=== PATIENT | male | born 1980 | race Caucasian/White ===

== ENCOUNTER 2020-10-11 12:56 | Emergency (ER) | payer BC ==
[~2020-10-11] VITALS: Ht 165.1 cm; Wt 70.8 kg
[2020-10-11] MEDS ORDERED: LIDOCAINE 1% INJ 50 ML MDV IJ ONE (13:12)
--- NOTE | 2020-10-11 13:27 | NUR ---
DR GOPAL PICKETT AT BEDSIDE FOR STITCHING R HAND
[2020-10-11] MEDS ORDERED: IBUP-1955 PO (14:09)
[2020-10-11] MEDS ORDERED: TDAP [DIPH/PERTUSSIS/TET] 0.5 ML VIAL IM ONE ×2 (14:26→14:30)
[2020-10-11 14:30] VITALS: BP 129/74
--- NOTE | 2020-10-11 14:30 | NUR ---
Patient discharged to home in stable condition. Written and verbal after care instructions given. Patient verbalizes understanding of instruction.
== END 2020-10-11 14:31 | disposition home or self-care (01) ==
LOC: ER 13:00
DX: S61.411A Laceration without foreign body of right hand, initial encounter (principal); Z79.899 Other long term (current) drug therapy; W26.8XXA Contact with other sharp object(s), not elsewhere classified, initial encounter; Y93.89 Activity, other specified; Y92.89 Other specified places as the place of occurrence of the external cause; Y99.8 Other external cause status
CPT/HCPCS: 12001; 90471; 90715; 99283; A6403; J3490